=== PATIENT | male | born 1955 | race Caucasian/White ===

== ENCOUNTER 2019-05-25 05:19 | Inpatient (IN) ==
--- NOTE | 2019-05-24 08:59 | Anesthesiology Consultation ---
Date of Service May 24, 2019 Assessment & Plan (1) Encounter for pre-operative examination: Chart Review Chart Review: Acceptable Risk for Surgery and Patient NOT seen in Pre Admission Testing Consults Requested none History Surgery Operation Date: 05/25/19 07:00 Proposed Procedures p Left Carotid Endarterectomy with Bovine Patch Angioplasty - Ramirez Power MD Height/Weight Height: 5 ft 10 in Weight: 108.862 kg Allergies Allergy/AdvReac Type Severity Reaction Status Date / Time No Known Allergies Allergy Verified 04/28/19 15:13 Medications Home Medications Medication Instructions Recorded Confirmed Last Taken acetaminophen [Tylenol Extra 500 mg PO Q6H PRN 03/18/19 04/28/19 03/31/19 20:00 Strength] aspirin 81 mg PO QPM 03/18/19 04/28/19 03/25/19 atorvastatin [Lipitor] 20 mg PO PM 03/18/19 04/28/19 03/31/19 20:00 clopidogrel [Plavix] 75 mg PO QPM 03/18/19 04/28/19 03/25/19 glipizide 5 mg PO QAM 03/18/19 04/28/19 03/31/19 20:00 metformin 1,000 mg PO BID 03/18/19 04/28/19 03/25/19 ramipril 10 mg PO QPM 03/18/19 04/28/19 03/31/19 20:00 duloxetine 60 mg capsule,delayed 60 mg PO QAM 04/19/19 04/28/19 Unknown release sprinkle Past Medical History Medical History Anxiety Depression Diabetes mellitus, type 2 NIDDM Hypertension Myocardial Infarction 1998 Osteoarthritis Past Family History Family History Mother Family history of diabetes mellitus Hypertension Heart disease Grandmother (Maternal) Family history of diabetes mellitus Brother Family history of diabetes mellitus Hypertension Heart disease Sister Family history of diabetes mellitus Past Surgical History Surgical History History of cardiac cath 1998 - [place] - [facility] - 2 STENTS 4 YEARS AGO - [facility] - NO STENTS/ANGIOPLASTY History of colonoscopy History of coronary artery bypass graft 1998 - 4 [facility] - FOLLOWS W/ DR. ANTONIO History of inguinal hernia repair RT History of lumbar spinal fusion History of tonsillectomy History of tooth extraction History of umbilical hernia repair Status post lung surgery Then had plastic surgery because his chest did not heal Social History Smoking Status: Former smoker tobacco type: cigarettes Do You Dip or Chew Tobacco: No Smoking End Date: QUIT 1998 Hx Alcohol Use: Yes Alcohol type: beer alcohol intake frequency: holidays/special occasions only Hx Substance Use: No substance use type: does not use Testing Laboratory Results 03/22/19 WBC 8.3 Hgb 14.5 platelet 292 Electrocardiogram Date: 04/28/19 Findings: + NSR @ (68 bpm) Nonspecific QRS widening Nonspecific T abnormality Chest X-Ray Date: 03/22/19 Findings: + NAD Echocardiogram Date: 06/01/16 Normal LV chamber size and wall thickness. LV systolic function lower limits of normal. LVEF 50-55%. Aortic root diameter mildly increased, 36mm. Right ventricle is normal in size and contractility. Normal RV/PA systolic pressure. Stress Test Date: 08/02/16 Type: nuclear Myocardial perfusion scan is negative for both ischemia and infarction. Other Testing Carotid duplex ultrasound 04/27/19 The flow parameters are consistent with between 50 and 69% stenosis in the bilateral internal carotid arteries
[2019-05-25] MEDS ORDERED: LR 15ML/HR IV SCH (06:00)
--- NOTE | 2019-05-25 06:29 | History & Physical Report ---
Date of Service May 25, 2019 Assessment & Plan (1) Carotid disease, bilateral: As we had discussed with the patient and his extensively in multiple visits we will proceed with left carotid endarterectomy and angioplasty risk and complication of the surgery were explained to the patient including bleeding infection stroke and they would like to proceed accordingly The patient is marked As stated there is been no major changes since his last encounter with our office and on last exam about a month ago Present on Admission?: Yes History of Present Illness 63-year-old gentleman is scheduled for left carotid endarterectomy for critical stenosis He had been scheduled a week ago but due to my family emergency surgery was canceled that this week There is no changes in neuro status except that he occasionally has expressive aphasia as he had been Primary Care Provider: NO PCP Allergies Allergy/AdvReac Type Severity Reaction Status Date / Time No Known Allergies Allergy Verified 05/25/19 05:48 Home Medications Home Medications Medication Instructions Recorded Confirmed Type acetaminophen [Tylenol Extra 500 mg PO Q6H PRN 03/18/19 05/25/19 History Strength] aspirin 81 mg PO QPM 03/18/19 05/25/19 History atorvastatin [Lipitor] 20 mg PO PM 03/18/19 05/25/19 History clopidogrel [Plavix] 75 mg PO QPM 03/18/19 05/25/19 History glipizide 5 mg PO QAM 03/18/19 05/25/19 History metformin 1,000 mg PO BID 03/18/19 05/25/19 History ramipril 10 mg PO QPM 03/18/19 05/25/19 History duloxetine 60 mg capsule,delayed 60 mg PO QAM 04/19/19 05/25/19 History release sprinkle Past Med/Surg History Medical History Anxiety Depression Diabetes mellitus, type 2 NIDDM Hypertension Myocardial Infarction 1998 Osteoarthritis Surgical History History of cardiac cath 1998 - [place] - [facility] - 2 STENTS 4 YEARS AGO - [facility] - NO STENTS/ANGIOPLASTY History of colonoscopy History of coronary artery bypass graft 1998 - 4 [facility] - FOLLOWS W/ DR. ALVAREZ History of inguinal hernia repair RT History of lumbar spinal fusion History of tonsillectomy History of tooth extraction History of umbilical hernia repair Status post lung surgery Then had plastic surgery because his chest did not heal Family History Mother Family history of diabetes mellitus Hypertension Heart disease Grandmother (Maternal) Family history of diabetes mellitus Brother Family history of diabetes mellitus Hypertension Heart disease Sister Family history of diabetes mellitus Social History (Updated 04/19/19 @ 17:42 by Kaylin Cates, RN) Preferred Language: Turkmen Communication Ability: Effective Mat Man Required: No Beliefs That Will Affect Care: None marital status: Current Living Situation: Significant Other current occupational status: employed 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 Other Information That Helps Us Care for You: No Feels Safe at Home: Yes Safety Concerns: Feels Safe At This Time Smoking Status: Former smoker Tobacco Type: cigarettes ; Do You Dip or Chew Tobacco: No ; Smoking End Date: QUIT 1998 ; Second Hand Exposure: No ; Hx Alcohol Use: Yes Alcohol type: beer Hx Substance Use: No Physical Exam Physical Exam: Patient is alert coherent no distress at the bedside Constitutional: WD/WN, vitals as above well developed and + obese Eyes: PERRL, conjunctivae normal, anicteric sclerae ENMT: external ear and nose normal, oropharynx normal Neck: Unable to hear carotid bruit Respiratory: normal respiratory effort, lungs clear to auscultation normal respiratory effort Cardiovascular: RRR, no murmur, no edema Rate/Rhythm: regular rate Heart Sounds: normal S1 Chest (Breasts): normal inspection/palpation of breasts Gastrointestinal (Abdomen): normal bowel sounds, soft, nontender, no hepatosplenomegaly Musculoskeletal: no cyanosis or clubbing, extremities motor strength 5/5 Skin: no rashes, warm and dry Neurologic: normal touch/pain/proprioception Psychiatric: A+Ox3, euthymic affect Results & Data Vital Signs (Past 12 Hours) Vital Signs Temp Pulse Resp BP Pulse Ox 05/25/19 06:08 36.4 C L 70 18 161/84 H 98 PG Care Time/CCT Total # of Minutes Spent Total Time Spent with Patient: Total time spent is greater than 50% in coordination of care (as documented) at patient's floor/unit and/or counseling patient:
[2019-05-25 06:33] LABS: Basophils # (auto) 0.03 K/uL (0-0.2); Basophils % (auto) 0.4 %; Eosinophils # (auto) 0.31 K/uL (0-0.5); Eosinophils % (auto) 4.5 %; Hemoglobin 14.2 g/dL (14.0-18.0); Immature Granulocytes # (auto) 0.01 K/uL (0.00-0.02); Immature Granulocytes % (auto) 0.1 %; Lymphocytes # (auto) 2.81 K/uL (1.2-3.4); Mean Corpuscular Hemoglobin 30.1 pg (25-34); Mean Corpuscular Volume 86.9 fL (80-100); Mean Platelet Volume 8.4 fL (7.4-10.4); Monocytes # (auto) 0.58 K/uL (0.11-0.59); Monocytes % (auto) 8.5 %; Neutrophils # (auto) 3.12 K/uL (1.4-6.5); Neutrophils % (auto) 45.5 %; Platelet Count 256 K/uL (130-400); RDW Coefficient of Variation 13.2 % (11.5-14.5); Red Blood Count 4.72 M/uL (4.7-6.1); White Blood Count 6.86 K/uL (4.8-10.8)
[2019-05-25] MEDS ORDERED: HEPARIN (PORCINE) 1000 UNIT/ML 10 ML (CATH LAB USE ONLY) ONE (06:36)
[2019-05-25] MEDS ORDERED: LIDOCAINE/EPINEPHRINE 1% 20 ML VIAL ONE (06:36)
[2019-05-25] MEDS ORDERED: BACITRACIN INJ 50,000 UNIT VIAL ONE (06:37)
[2019-05-25 06:45] LABS: Mean Corpuscular Hgb Conc 34.6 g/dL (32-36)
[2019-05-25] MEDS ORDERED: GLYCOPYRROLATE 0.2 MG/ML VIAL ONE (06:45)
[2019-05-25] MEDS ORDERED: fentaNYL citrate 100 MCG/2 ML VIAL ONE ×2 (06:45→08:03)
[2019-05-25] MEDS ORDERED: MIDAZOLAM HCL 1 MG/ML 2ML VIAL ONE (06:45)
[2019-05-25] MEDS ORDERED: PROPOFOL IV EMULSION 10 MG/ML 20 ML VIAL IV ONE (06:45)
[2019-05-25] MEDS ORDERED: DEXAMETHASONE SOD INJ 4 MG/ML VIAL ONE (06:45)
[2019-05-25] MEDS ORDERED: LIDOCAINE HCL 2% 2 ML VIAL/AMP(20MG/ML) INFIL ONE (06:45)
[2019-05-25] MEDS ORDERED: NEOSTIGMINE METHYLSULFATE 5 MG/5 ML SYR ONE (06:45)
[2019-05-25] MEDS ORDERED: ONDANSETRON INJ 2 MG/ML 2 ML VIAL ONE ×2 (06:45→08:28)
[2019-05-25 06:50] LABS: BUN Creatinine Ratio 18.9 (10-20); Calcium 8.8 mg/dl (8.5-10.1); Creatinine Clr Calc Pharmacy 113.6 ml/min; Est GFR (African American) 108.3; Est GFR (Non-African American) 93.5; Potassium 4.2 mmol/L (3.5-5.1)
[2019-05-25] MEDS ORDERED: CEFAZOLIN 2,000 MG/15 ML IV PUSH IV ONE (06:55)
[2019-05-25] MEDS ORDERED: fentaNYL citrate 100 MCG/2 ML VIAL IV PRN (07:40)
[2019-05-25] MEDS ORDERED: PROMETHAZINE HCL 12.5 MG in SODIUM CHLORIDE 0.9% 50 ML IV PRN (07:40)
[2019-05-25] MEDS ORDERED: DEXAMETHASONE SOD INJ 4 MG/ML VIAL IV PRN (07:40)
[2019-05-25] MEDS ORDERED: ATROPINE SULFATE 0.1 MG/ML 10ML SYR IV PRN (07:40)
[2019-05-25] MEDS ORDERED: ePHEDrine sulfate 50 MG/ML AMP IV PRN (07:40)
[2019-05-25] MEDS ORDERED: METOCLOPRAMIDE HCL INJ 5 MG/ML 2 ML VIAL IV PRN (07:40)
[2019-05-25] MEDS ORDERED: ONDANSETRON INJ 2 MG/ML 2 ML VIAL IV PRN ×2 (07:40→11:51)
[2019-05-25] MEDS ORDERED: HYDROmorphone INJ 2 MG/ML SYR/VIAL IV PRN (07:40)
[2019-05-25] MEDS ORDERED: HEPARIN SOD (PORCINE) 1000 UNIT/ML 10 ML VIAL ONE (08:28)
[2019-05-25] MEDS ORDERED: LARYING-O-JET KIT (LTA) ONE (08:28)
[2019-05-25] MEDS ORDERED: NITROGLYCERIN/D5W 100 MCG/ML BTL ONE (08:28)
[2019-05-25] MEDS ORDERED: PHENYLEPHRINE HCL 10 MG/ML VIAL ONE (08:28)
[2019-05-25] MEDS ORDERED: ROCURONIUM BROMIDE 10 MG/ML 5 ML VIAL ONE (08:28)
[2019-05-25] MEDS ORDERED: PROTAMINE SULFATE 10 MG/ML 5 ML VIAL ONE ×2 (09:16→09:32)
--- NOTE | 2019-05-25 09:37 | Post Operative Brief Note ---
PG Immediate Post Op with CF Date of Surgery May 25, 2019 Pre & Post Diagnosis Operation Date: 05/25/19 07:00 Pre-Op Diagnosis: Carotid Stenosis Post-Op Diagnosis: Carotid Stenosis I identified the patient and participated in the time-out.: Yes Procedure Operation Date: 05/25/19 07:00 Actual Procedures p Left Carotid Endarterectomy with Bovine Patch Angioplasty(Left) - Ramirez Power MD Surgeon Ramirez Power MD Orthodontic Treatment Coordinator b Óscar Jade , tisha jade Estimated Blood Loss 150 Findings Consistent with Post-Op Diagnosis Specimens Specimen Description: A. Left Carotid Plaque Drains Wilber Drain
[2019-05-25] MEDS ORDERED: LABETALOL HCL IV 5 MG/ML 20ML IV ONE (10:03)
[2019-05-25] MEDS ORDERED: NovoLIN-R INSULIN PER UNIT CHARGE ONE (10:16)
[2019-05-25] MEDS ORDERED: NovoLIN-R INSULIN PER UNIT CHARGE SC STA (10:20)
--- NOTE | 2019-05-25 10:23 | Operative Report ---
PG Post Operative Report Pre & Post Diagnosis Operation Date: 05/25/19 07:00 Pre-Op Diagnosis: Carotid Stenosis Post-Op Diagnosis: Carotid Stenosis I identified the patient and participated in the time-out.: Yes Procedure Operation Date: 05/25/19 07:00 Actual Procedures p Left Carotid Endarterectomy with Bovine Patch Angioplasty(Left) - Ramirez Power MD The patient was brought into the operating theater general anesthetic roll placed underneath the shoulder the head rotated to the right left neck and chest was prepped with Betadine scrub solution and properly draped systemic antibiotics given a timeout was had patient was identified this point 1% Xylocaine with epi was used to infiltrate the skin the anterior surface of the sternocleidal muscle sufficient enough to make about a 3-1/2 inch incision needed to subcutaneous tissue we went on and stayed medial to the medial head of sternocleido's muscle which were retracted laterally both vein along the muscle itself cauterized and suture-ligated dissection was taken down onto the neurovascular bundle we enlarged the incision more proximally towards the mandible there were able to identify the facial vein which was quite high we were able to divided light doubly ligated with 2-0 silk suture we then identified the hypoglossal nerve was similarly we retracted out with a vessel loop after pain tension to dissected out freely the common carotid was then encircled approximately 1 inch and half from the bifurcation we took our dissection distally to identify the superior thyroid artery which was encircled 2 oh Mavis tie the external carotid was encircled with a vessel loop the carotid body suspensory ligament was divided and ligated we were able then to find the external the internal carotid which was quite dilated and disease proximally it seemed like to go up higher well underneath the hypoglossal nerve therefore we divided the digastric muscle at its tendinous portion and our dissection was pretty high to get beyond the diseased artery probably an inch from its bifurcation to we found what appeared to be normal artery least externally and by dissection. This point systemic interposition was given wiith 12,000 units of heparin waiting approximately 5 minutes we then clamped the internal carotid beyond the diseased portion with a bulldog clamp then the commo n and external arteriotomy in the common carotid was made we entered there were appeared to be softer but as we got towards the bifurcation there was rockhard disease and we found was pretty near totally occluded internal carotid and external carotid we took our dissection distally into the internal carotid area to an area we thought that the intima was adherent and the status was about an inch and a half from a takeoff once we have completed this we did an inversion endarterectomy on the external carotid system backslash that we also backslash the internal carotid which is excellent backbleeding and flushed the common carotid while we are waiting for the heparin to take effect we have prepped the bovine patch on the field and alternated with 6-0 Prolene parachuting it down into the internal carotid area then circumferentially around to the point that prior to closing this second down the patch patient #4 bakes dilator into the internal carotid area and controlling backbleeding with DeBakey forceps then flush the external and the common suctioned out the endarterectomy site and touched on the patch there were few bleeders along the the suture line that we controlled interrupted 6-0 Prolene sutures there was one area we thought that the suture had come undone from this to suture but it was a good accessory piece of Vicryl of Prolene that was in cut up into the suture knot and left intact at the externally once the clip from the external carotid was taken off and we had good hemostasis we opened up the common carotid and there was no more bleeding appreciated the suture line and then we released the internal carotid clamp we can palpate beyond the suture line but there was no thrill appreciated blood pressure was 104/80 with release of the clamp then we had another suture line bleed approximately a centimeter proximal to the patch in the internal carotid area we interrupted with a 6-0 Prolene suture hemostasis was excellent we had given 50 mg of protamine we gave another 25 complete good hemostatic field quarter inch [place] was brought into the field we made a small incision medially to the 2 heads of sternocleidal and placed a [place] in the along the incision closing the wound a more where 302 0 Dexon lito for skin edges dressing is applied procedure was tolerated well by the patient estimated blood loss 150 cc addendum Gary JADE and Tisha JADE were both present for this surgery necessitating an printing roller handler to facilitate exposure in this very difficult case Surgeon Ramirez Power MD Plastics Engineering Teacher ran Jade , tisha jade Estimated Blood Loss 150 Findings Consistent with Post-Op Diagnosis Specimens plaque Description of Procedure merda I attest to the content of the Intraoperative Record and any orders documented therein. Any exceptions are noted below.
--- NOTE | 2019-05-25 11:38 | Anesthesiology Progress Note ---
Date of Service May 25, 2019 Anesthesia Post Procedure Vital Signs Vital Signs: Temp Pulse Pulse Resp BP BP Pulse Ox 05/25/19 11:05 36.9 C 78 15 145/89 H 140/65 98 05/25/19 10:55 79 17 147/63 H 126/59 L 97 05/25/19 10:45 81 15 157/68 H 129/64 95 05/25/19 10:35 77 21 149/66 H 127/64 95 05/25/19 10:25 70 12 115/93 122/64 97 05/25/19 10:15 76 19 131/60 115/62 98 05/25/19 10:05 70 16 97/63 L 99/55 L 100 05/25/19 09:59 36.3 C L 72 20 102/53 L 99 05/25/19 06:08 36.4 C L 70 18 161/84 H 98 Transfer of Care Handoff Completed per policy Notes Mental Status: alert / awake / arousable and participated in evaluation Patient Amnestic to Procedure: Yes Nausea / Vomiting: adequately controlled Pain: adequately controlled Airway Patency, RR, SpO2: stable & adequate BP & HR: stable & adequate Hydration State: stable & adequate Anesthetic Complications: no major complications apparent
[2019-05-25] MEDS ORDERED: DEXTROSE 50% 50 ML SYRINGE IV PRN (11:51)
[2019-05-25] MEDS ORDERED: GLUCOSE 40% GEL 15 GM TUBE PO PRN (11:51)
[2019-05-25] MEDS ORDERED: NITROGLYCERIN/D5W 100MCG/ML 250 ML IV SCH (11:51)
[2019-05-25] MEDS ORDERED: NALOXONE HCL 0.4 MG/1 ML VIAL/CARP IV PRN (11:51)
[2019-05-25] MEDS ORDERED: CARBOHYDRATES FOR HYPOGLYCEMIA PO PRN (11:51)
[2019-05-25] MEDS ORDERED: GLUCAGON FOR INJ 1 MG VIAL SQ PRN (11:51)
[2019-05-25] MEDS ORDERED: GLUCOSE 10 TABS/TUBE PO PRN (11:51)
[2019-05-25] MEDS ORDERED: LACTATED RINGER'S 1,000 ML IV SCH (11:51)
[2019-05-25] MEDS ORDERED: MoRPHine SULFATE 4 MG/ML 1 ML CARP\\VIAL IV PRN (11:59)
[2019-05-25] MEDS: MoRPHine SULFATE 2 MG/ML CARP IV PRN ×2 (12:38→15:18)
[2019-05-25] MEDS: INSULIN ASPART 100 UNITS/ML 3 ML PEN SC SCH ×3 (13:12→21:01)
--- NOTE | 2019-05-25 19:05 | Critical Care Consultation ---
Date of Consultation May 25, 2019 Assessment & Plan (1) S/P carotid endarterectomy: (2) Carotid disease, bilateral: (3) Diabetes: (4) CAD (coronary artery disease): History of Present Illness Attending Physician: Ramirez Power MD History of Present Illness Patient is a 63-year-old male with a significant past medical history of diabetes, coronary artery disease, hypertension, and hyperlipidemia who was admitted to the ICU status post LEFT-sided CEA performed earlier today. Patient reports that he has a torn LEFT-sided rotator cuff and was found to have LEFT- sided carotid artery stenosis in the preoperative evaluation. He does report that he has been having expressive aphasia for the last few months. Otherwise, patient had no other complaints, particularly any headaches, dizziness, visual disturbances, loss of vision, or numbness/weakness to the extremities. Upon arrival in the ICU, the patient is awake, alert, and oriented. He complains of a headache and some pressure to the surgical site. Otherwise, he denies any dizziness, lightheadedness, blurry vision, double vision, loss of vision, nausea, vomiting, chest pain, palpitations, shortness of breath, or numbness/weakness to the extremities. He reports that he did have dinner this evening and feels well otherwise. He offers no other complaints at this time. Allergies Allergy/AdvReac Type Severity Reaction Status Date / Time No Known Allergies Allergy Verified 05/25/19 05:48 Home Medications Home Medications Medication Instructions Recorded Confirmed Type aspirin 81 mg PO QPM 03/18/19 05/25/19 History atorvastatin [Lipitor] 20 mg PO PM 03/18/19 05/25/19 History clopidogrel [Plavix] 75 mg PO QPM 03/18/19 05/25/19 History glipizide 5 mg PO QAM 03/18/19 05/25/19 History metformin 1,000 mg PO BID 03/18/19 05/25/19 History ramipril 10 mg PO QPM 03/18/19 05/25/19 History duloxetine 60 mg capsule,delayed 60 mg PO QAM 04/19/19 05/25/19 History release sprinkle oxycodone-acetaminophen [Percocet] 1 - 2 tab PO Q4H PRN #10 tab 05/25/19 Rx Patient History Medical History Anxiety Depression Diabetes mellitus, type 2 NIDDM Hypertension Myocardial Infarction 1998 Osteoarthritis Surgical History History of cardiac cath 1998 - [place] - [facility] - 2 STENTS 4 YEARS AGO - [facility] - NO STENTS/ANGIOPLASTY History of colonoscopy History of coronary artery bypass graft 1998 - [facility] - FOLLOWS W/ DR. ALVAREZ History of inguinal hernia repair RT History of lumbar spinal fusion History of tonsillectomy History of tooth extraction History of umbilical hernia repair S/P carotid endarterectomy (05/25/19) Left Carotid Endarterectomy with Bovine Patch Angioplasty Dr. Power 05-25-19 Status post lung surgery Then had plastic surgery because his chest did not heal Family History Mother Family history of diabetes mellitus Hypertension Heart disease Grandmother (Maternal) Family history of diabetes mellitus Brother Family history of diabetes mellitus Hypertension Heart disease Sister Family history of diabetes mellitus Social History Preferred Language: Nepalese Communication Ability: Effective Regional Flatbed Truck Driver Required: No Beliefs That Will Affect Care: None marital status: Current Living Situation: Significant Other current occupational status: employed 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 All else were negative. Physical Exam Physical Exam: VITAL SIGNS - Vital signs and nursing notes were reviewed. GENERAL - 63-year-old male appearing his stated age who is in no acute distress. Communicates well with provider and answers questions appropriately. SKIN - Postoperative LEFT sided post CEA surgical incision site clean, dry, and intact. HEAD - NC/AT. EYES - PERRL with EOMI bilaterally. Sclera anicteric. Palpebral conjunctiva pink and moist with no injection noted. EARS - No deformities of external structures noted on gross examination bilaterally. NOSE - Midline and without cyanosis. No epistaxis or purulent drainage noted. MOUTH/OROPHARYNX - Without perioral cyanosis. Buccal mucosa pink and moist and without leukoplakia. Tongue midline with equal elevation of palate bilaterally. No tonsillar hypertrophy, erythema, or exudates noted. NECK - Postoperative surgical site to the LEFT sided neck clean, and intact. Neck with FROM. LUNGS - Chest wall symmetric without accessory muscle use, intercostals retractions, or central cyanosis. Normal vesicular breath sounds CTA B/L. No wheezes, rales, or rhonchi appreciated. CARDIAC - RRR with S1/S2. No murmur, rubs, or gallops appreciated. No reproducible tenderness to palpation appreciated over the anterior chest wall. ABDOMEN - Abdominal contour obese without pulsations or visible masses. BS normoactive all four quadrants. No tenderness, palpable masses, hepatosplenomegaly, or ascites noted. EXTREMITIES - No clubbing or peripheral cyanosis. No pretibial edema present. +3/5 radial and dorsalis pedis pulses palpated throughout. +5/5 strength noted in UE/LE bilaterally. NEUROLOGIC - Cranial nerves II through XII grossly intact. Sensory intact to light touch throughout. PSYCH - A&Ox3 and cooperates fully with examiner. Pt is very pleasant and interacts well with examiner. Results & Data Vital Signs (Past 12 Hours) Vital Signs Temp Pulse Pulse Resp BP BP BP 05/25/19 18:00 36.8 C 83 22 144/76 H 05/25/19 17:30 89 18 141/73 H 05/25/19 17:00 92 H 15 120/84 05/25/19 16:30 86 17 135/76 05/25/19 16:00 36.7 C 85 19 124/72 05/25/19 15:30 82 19 125/72 05/25/19 15:00 85 19 136/81 05/25/19 14:41 85 18 153/70 H 135/72 05/25/19 14:00 81 16 136/78 05/25/19 13:45 81 16 137/77 05/25/19 13:15 82 15 145/67 H 05/25/19 13:00 81 17 130/72 05/25/19 12:45 83 17 128/67 05/25/19 12:33 36.5 C 62 18 155/92 H 05/25/19 11:45 36.9 C 76 18 154/56 H 134/68 05/25/19 11:05 36.9 C 78 15 145/89 H 140/65 05/25/19 10:55 79 17 147/63 H 126/59 L 05/25/19 10:45 81 15 157/68 H 129/64 05/25/19 10:35 77 21 149/66 H 127/64 05/25/19 10:25 70 12 115/93 122/64 05/25/19 10:15 76 19 131/60 115/62 05/25/19 10:05 70 16 97/63 L 99/55 L 05/25/19 09:59 36.3 C L 72 20 102/53 L Pulse Ox 05/25/19 18:00 96 05/25/19 17:30 96 05/25/19 17:00 96 05/25/19 16:30 96 05/25/19 16:00 96 05/25/19 15:30 96 05/25/19 15:00 96 05/25/19 14:41 95 05/25/19 14:00 94 05/25/19 13:45 95 05/25/19 13:15 95 05/25/19 13:00 95 05/25/19 12:45 96 05/25/19 12:33 100 05/25/19 11:45 96 05/25/19 11:05 98 05/25/19 10:55 97 05/25/19 10:45 95 05/25/19 10:35 95 05/25/19 10:25 97 05/25/19 10:15 98 05/25/19 10:05 100 05/25/19 09:59 99 Coding Level of Care Code Critical Care 1st 30-74 mins Diagnoses S/P carotid endarterectomy Z98.890 Carotid disease, bilateral I73.9 Diabetes E11.9 CAD (coronary artery disease) I25.10 Time Spent (min) 35
[2019-05-25] MEDS ORDERED: ENALAPRIL MALEATE 10 MG TAB PO SCH (21:00)
[2019-05-25] MEDS ORDERED: ATORVASTATIN 20 MG TAB PO SCH (21:00)
[2019-05-25] MEDS ORDERED: CLOPIDOGREL BISULFATE 75 MG TAB PO SCH (21:00)
[2019-05-25] MEDS ORDERED: INSULIN GLARGINE SOLOSTAR 100 UNITS/ML 3 ML PEN SC SCH (21:00)
[2019-05-25] MEDS ORDERED: ASPIRIN 81 MG ECTAB PO SCH (21:00)
[2019-05-25] MEDS: OXYCODONE/ACETAMINOPHEN 5mg/325mg TAB PO PRN (21:10)
[2019-05-26] MEDS: OXYCODONE/ACETAMINOPHEN 5mg/325mg TAB PO PRN (04:54)
[2019-05-26 05:06] LABS: Basophils # (auto) 0.01 K/uL (0-0.2); Basophils % (auto) 0.1 %; Eosinophils # (auto) 0.01 K/uL (0-0.5); Eosinophils % (auto) 0.1 %; Hemoglobin 12.7 g/dL (14.0-18.0); Immature Granulocytes # (auto) 0.03 K/uL (0.00-0.02); Immature Granulocytes % (auto) 0.2 %; Lymphocytes # (auto) 2.38 K/uL (1.2-3.4); Lymphocytes % (auto) 19.5 %; Mean Corpuscular Hemoglobin 30.2 pg (25-34); Mean Corpuscular Hgb Conc 34.3 g/dL (32-36); Mean Corpuscular Volume 88.1 fL (80-100); Mean Platelet Volume 8.2 fL (7.4-10.4); Monocytes # (auto) 0.98 K/uL (0.11-0.59); Neutrophils # (auto) 8.78 K/uL (1.4-6.5); Neutrophils % (auto) 72.1 %; Platelet Count 247 K/uL (130-400); RDW Coefficient of Variation 13.4 % (11.5-14.5); RDW Standard Deviation 43.2 fL (36.4-46.3); White Blood Count 12.19 K/uL (4.8-10.8)
[2019-05-26 05:36] LABS: BUN Creatinine Ratio 14.8 (10-20); Calcium 8.4 mg/dl (8.5-10.1); Creatinine Clr Calc Pharmacy 127.6 ml/min; Est GFR (African American) 113.6; Magnesium 1.8 mg/dl (1.8-2.4); Potassium 4.3 mmol/L (3.5-5.1)
[2019-05-26 05:37] LABS: Phosphorus 2.7 mg/dl (2.5-4.9)
[2019-05-26 05:50] LABS: Estimated Average Glucose 235 mg/dl; Hemoglobin A1C 9.8 % (4.5-5.6)
--- NOTE | 2019-05-26 07:16 | Surgery Progress Note ---
Date of Service May 26, 2019 Assessment & Plan (1) Carotid disease, bilateral: POD ! LCE The Wilber drain was removed dressings applied hopefully get him off nitroglycerin this morning and patient may be discharged later today if his blood pressures under control instructions were given to him again regarding home activity meds and follow-up As we had discussed with the patient and his extensively in multiple visits we will proceed with left carotid endarterectomy and angioplasty risk and complication of the surgery were explained to the patient including bleeding infection stroke and they would like to proceed accordingly The patient is marked As stated there is been no major changes since his last encounter with our office and on last exam about a month ago Subjective Patient feels fine no real issues except minor headache still on nitroglycerin drip blood pressure is 1 20-1 60 range tolerated diet voiding without a problem been out of bed ambulating Physical Exam Physical Exam: Neck incision without ecchymosis or hematoma minimal drainage from the Wilber drain Neuro intact grossly tongue midline good left superficial temporal pulse Constitutional: WD/WN, vitals as above well developed and + obese Eyes: PERRL, conjunctivae normal, anicteric sclerae ENMT: external ear and nose normal, oropharynx normal Respiratory: normal respiratory effort, lungs clear to auscultation normal respiratory effort Cardiovascular: RRR, no murmur, no edema Rate/Rhythm: regular rate Heart Sounds: normal S1 Chest (Breasts): normal inspection/palpation of breasts Gastrointestinal (Abdomen): normal bowel sounds, soft, nontender, no hepatosplenomegaly Musculoskeletal: no cyanosis or clubbing, extremities motor strength 5/5 Skin: no rashes, warm and dry Neurologic: normal touch/pain/proprioception Psychiatric: A+Ox3, euthymic affect Results & Data Vital Signs (Past 12 Hours) Vital Signs Temp Pulse Resp BP Pulse Ox 05/26/19 06:00 74 15 130/66 97 05/26/19 05:45 77 17 122/62 95 05/26/19 05:30 75 16 132/64 94 05/26/19 05:15 80 20 123/65 95 05/26/19 05:01 85 13 94 05/26/19 05:00 79 18 132/70 95 05/26/19 04:00 152/64 H 05/26/19 01:00 91 H 12 122/71 93 05/26/19 00:45 92 H 12 123/67 93 05/26/19 00:30 91 H 13 131/72 93 05/26/19 00:15 93 H 13 121/66 94 05/26/19 00:01 92 H 13 94 05/26/19 00:00 36.7 C 92 H 13 120/68 94 05/25/19 23:45 87 14 118/69 95 05/25/19 23:30 89 14 123/68 93 05/25/19 23:15 94 H 18 124/69 93 05/25/19 23:01 94 H 13 94 05/25/19 23:00 90 15 131/67 95 05/25/19 21:00 84 19 132/73 94 05/25/19 20:30 85 18 133/73 94 05/25/19 20:00 36.7 C 83 20 138/81 95 05/25/19 19:30 88 18 132/66 96 PG Care Time/CCT Total # of Minutes Spent Total Time Spent with Patient: Total time spent is greater than 50% in coordination of care (as documented) at patient's floor/unit and/or counseling patient:
[2019-05-26] MEDS: INSULIN ASPART 100 UNITS/ML 3 ML PEN SC SCH ×2 (08:38→11:55)
[2019-05-26] MEDS ORDERED: DULOXETINE HCL 60 MG CAP PO SCH (09:00)
--- NOTE | 2019-05-26 10:01 | Critical Care Progress Note ---
Date of Service May 26, 2019 Assessment & Plan (1) S/P carotid endarterectomy: Stable for discharge per surgery (2) Carotid disease, bilateral: (3) Diabetes: (4) CAD (coronary artery disease): Subjective Patient improved from yesterday. Tolerating diet. No headache. Review of Systems Review of Systems: No chest pain no shortness of breath Physical Exam Physical Exam: General: Alert. nontoxic. 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 Results & Data Vital Signs (Past 12 Hours) Vital Signs Temp Pulse Resp BP Pulse Ox 05/26/19 09:00 80 19 124/69 94 05/26/19 08:01 76 19 140/70 98 05/26/19 08:00 74 05/26/19 07:00 36.7 C 80 15 136/67 94 05/26/19 06:00 74 15 130/66 97 05/26/19 05:45 77 17 122/62 95 05/26/19 05:30 75 16 132/64 94 05/26/19 05:15 80 20 123/65 95 05/26/19 05:01 85 13 94 05/26/19 05:00 79 18 132/70 95 05/26/19 04:00 152/64 H 05/26/19 01:00 91 H 12 122/71 93 05/26/19 00:45 92 H 12 123/67 93 05/26/19 00:30 91 H 13 131/72 93 05/26/19 00:15 93 H 13 121/66 94 05/26/19 00:01 92 H 13 94 05/26/19 00:00 36.7 C 92 H 13 120/68 94 05/25/19 23:45 87 14 118/69 95 05/25/19 23:30 89 14 123/68 93 05/25/19 23:15 94 H 18 124/69 93 05/25/19 23:01 94 H 13 94 05/25/19 23:00 90 15 131/67 95 Coding Level of Care Code 79183 Subseq Hosp Care Lvl 1 Diagnoses S/P carotid endarterectomy Z98.890 Carotid disease, bilateral I73.9 Diabetes E11.9 CAD (coronary artery disease) I25.10
--- NOTE | 2019-05-26 10:03 | Discharge Summary ---
Date of Service May 26, 2019 Principal Diagnosis Left carotid stenosis Discharge Exam Neurologic moves all extremities and awake incision clean, dry Discharge Data Allergies Allergy/AdvReac Type Severity Reaction Status Date / Time No Known Allergies Allergy Verified 05/25/19 05:48 Consultations 05/25/19 11:51 Consult Program Facilitator Routine Procedures Performed Operation Date: 05/25/19 07:00 Actual Procedures p Left Carotid Endarterectomy with Bovine Patch Angioplasty(Left) - Ramirez Power MD Hospital Course (1) S/P carotid endarterectomy: 63 y/o male with left carotid stenosis taken to the OR for endarterectomy and transferred to ICU for postoperative monitoring. He was started on nitro drip to maintain BP below 160mmHg overnight. He was weaned from the nitro in the morning, BP remained stable and he was stable for discharge in the afternoon. Total Time Total Time Spent Total Time Spent (In Minutes): 10 Discharge Plan Discharge Items Patient Disposition: Home - Self-Care Reason For Visit: Carotid Stenosis, DIABETES Discharge Diagnosis: endarterectomy Activity: Resume your previous activity Lifting: No more than 10 pounds Bathing: No limitations Non-emergency contact: Surgeon Call non-emergency contact if: you have any medication questions, your pain is not controlled, you have a fever, your temperature is above 101.5, your wound has increased redness and your wound has increased drainage Follow-up/Referrals: Ramirez Power MD [Surgeon] - (Call to make an appt in 1 week if you do not already have one) PCP,NO [Primary Care Provider] - Diet: Regular Addtl Attending Provider Instructions: Pending Studies at Discharge: No Stand-Alone Forms: My [facility], Work/School Release (Inpt) Medications and DC Order Prescriptions: New oxycodone-acetaminophen [Percocet] 5-325 mg tablet 1 - 2 tab PO Q4H PRN (Reason: pain, initial therapy, max 8 daily) Qty: 10 RF: 0 Continued duloxetine 60 mg capsule, delayed rel sprinkle 60 mg PO QAM RF: 0 atorvastatin [Lipitor] 20 mg Tablet 20 mg PO PM RF: 0 clopidogrel [Plavix] 75 mg Tablet 75 mg PO QPM RF: 0 aspirin 81 mg Tablet,Delayed Release (Dr/Ec) 81 mg PO QPM RF: 0 metformin 1,000 mg Tablet 1,000 mg PO BID RF: 0 glipizide 5 mg Tablet 5 mg PO QAM RF: 0 ramipril 10 mg Capsule 10 mg PO QPM RF: 0 Discontinued acetaminophen [Tylenol Extra Strength] 500 mg Tablet 500 mg PO Q6H PRN (Reason: Pain) RF: 0 Discharge Orders: Discharge Order (Routine); Ordered 05/26/19 Ordered By: Roshan Mcdonald/Other Patient Handouts: Diabetes Heart Disease, Diabetes Drug Abuse Counselor Complications, Diabetes Resources, Diabetes Type 2 Coping, Diabetes Healthy Me als, Diabetes Carbs, Diabetes Exercise Benefits, Diabetes Exercise Get Started, Diabetes Activity Tips, Diabetes Living Life, Diabetes Manage A1C Test Admission Data Admit Date/Time: 05/25/19 10:21 Attending Provider: Ramirez Power Admit Provider: Ramirez Power Primary Care Provider: PCP,NO Other Providers: Braulio Hernandez Other Interventions: Discharge Summary Assessment (RN) Last Done: 05/26/19 12:01 RI Date/Time DO NOT enter until pt leaves facility: 05/26/19 13:00
[2019-05-26] MEDS ORDERED: INSULIN GLARGINE SOLOSTAR 100 UNITS/ML 3 ML PEN SC ONE (10:15)
== END 2019-05-26 13:00 | disposition home or self-care (01) | DRG 39 ==
LOC: ASU 05:19 → 1E 10:21